=== PATIENT | female | born 1965 | race Caucasian/White ===

== ENCOUNTER → 2018-04-04 | Outpatient (CLI) | payer OTHER ==
--- NOTE | 2018-04-04 10:23 | KCIC ---
MR of the right elbow Indication: Right elbow pain, feels a pulling sensation. Technique: Standard multiplanar sequences are obtained. FINDINGS: Artifact: No significant image degradation. Anterior: Biceps tendon and brachialis tendon are intact. Posterior: The triceps tendon and insertion are intact. Medial: Common flexor tendon and ulnar collateral ligament are intact. Lateral: Common extensor tendon demonstrates mild thickening and heterogeneity compatible with tendinosis. No acute disruption of lateral collateral ligament complex. Fluid: No significant effusion. Joints: No advanced DJD. Bones: No focal lesion. No acute fracture. Soft tissues: No concerning edema or fluid accumulation Ulnar nerve: Unremarkable Impression: 1. Common extensor tendinosis, mild. 2. No other significant abnormality. Electronically signed by: Rocky Barba MD (04/04/2018 10:19 AM) [id number]
== END | disposition home or self-care (01) ==
LOC: KCIC MRI 07:43
PROVIDERS: ATTEND Orthopaedic Surgery
DX: M25.521 Pain in right elbow (principal)
CPT/HCPCS: 73221